=== PATIENT | female | born 1975 | race Caucasian/White ===

== ENCOUNTER 2022-11-09 03:08 | Emergency (ER) | payer MEDICAID ==
[~2022-11-09] VITALS: Ht 162.6 cm; Wt 181.4 kg
[~2022-11-09 03:08] MED LIST: ACET325 PO; CIPR500 PO; CYCL10 PO; HYDACE5 PO; IBUP600 PO; IBUP800 PO; RXPHEN200 PO; [UNRECOGNIZED DRUG - REMARK]
[2022-11-09 03:28] LABS: BASOPHILS ABSOLUTE AUTO 0.13 K/mm3 (0.00-0.23); BASOPHILS PERCENT AUTO 1 % (0-2); EOSINOPHILS ABSOLUTE AUTO 0.08 K/mm3 (0.00-0.68); EOSINOPHILS PERCENT AUTO 1 % (0-6); Hematocrit 46.5 % (33.0-51.0); Hemoglobin 14.4 g/dL (11.5-16.0); IMMATURE GRAN ABSOLUTE AUTO 0.56 K/mm3 (0.00-0.10); IMMATURE GRAN PERCENT AUTO 5 % (0-1); LYMPHOCYTES ABSOLUTE AUTO 2.79 K/mm3 (0.84-5.20); LYMPHOCYTES PERCENT AUTO 24 % (21-46); MONOCYTES ABSOLUTE AUTO 0.46 K/mm3 (0.16-1.47); MONOCYTES PERCENT AUTO 4 % (4-13); Mean Corpuscular HGB 27.1 pg (26.0-34.0); Mean Corpuscular Volume 88 fL (80-100); Mean Platelet Volume 10.3 fL (9.1-12.4); NEUTROPHILS ABSOLUTE AUTO 7.86 K/mm3 (1.96-9.15); NEUTROPHILS PERCENT AUTO 66 % (41-73); Platelet Count 386 K/mm3 (150-400); RDW Coefficient Variation 14.6 % (11.7-14.2); RDW Standard Deviation 47.1 fL (35.1-46.3); Red Blood Cell Count 5.31 M/mm3 (3.80-5.20); White Blood Cell Count 11.88 K/mm3 (4.00-11.30)
[2022-11-09 03:51] LABS: Albumin, Blood 2.7 g/dL (3.4-5.0); Albumin/Globulin Ratio 0.5 (0.8-1.8); Bilirubin, Total 0.2 mg/dL (0.1-1.0); Bun/Creatinine Ratio 18.3 (12.0-20.0); Calcium, Blood 8.7 mg/dL (8.5-10.1); Creatinine, Blood 0.87 mg/dL (0.40-1.00); Globulin, Blood 5.4 g/dL (2.2-4.0); Potassium, Blood 3.9 mmol/L (3.5-5.5); Total Protein, Blood 8.1 g/dL (6.4-8.2)
[2022-11-09 04:28] LABS: Magnesium, Blood 1.7 mg/dL (1.6-2.4)
[2022-11-09 04:49] VITALS: BP 197/81
== END 2022-11-09 05:35 | disposition home or self-care (01) ==
LOC: ER 03:08
PROVIDERS: Student in an Organized Health Care Education/Training Program
DX: I47.1 Supraventricular tachycardia (principal); Z88.2 Allergy status to sulfonamides; E66.9 Obesity, unspecified; F17.200 Nicotine dependence, unspecified, uncomplicated
CPT/HCPCS: 71046; 80053; 83735; 83880; 84484; 85025; 93005; 93010; 99285-25

== ENCOUNTER 2023-09-13 15:37 | Observation (INO) | payer OTHER ==
[~2023-09-13] VITALS: Ht 157.5 cm; Wt 177.7 kg
[2023-09-13] VITALS (33 sets, daily range): BP systolic 84–199; BP diastolic 48–108
[2023-09-13] MEDS ORDERED: Adenosine 3 MG/ML 2 ML Vial ONE ×2 (15:58→16:06)
[2023-09-13 16:01] LABS: Hematocrit 47.7 % (33.0-51.0); Hemoglobin 15.5 g/dL (11.5-16.0); Mean Corpuscular HGB 30.2 pg (26.0-34.0); Mean Corpuscular HGB Conc 32.5 g/dL (31.5-36.5); Mean Corpuscular Volume 93 fL (80-100); Mean Platelet Volume 10.4 fL (9.1-12.4); Platelet Count 292 K/mm3 (150-400); RDW Coefficient Variation 13.8 % (11.7-14.2); RDW Standard Deviation 46.7 fL (35.1-46.3); Red Blood Cell Count 5.14 M/mm3 (3.80-5.20); White Blood Cell Count 14.65 K/mm3 (4.00-11.30)
[2023-09-13] MEDS ORDERED: NS 1,000 ML IV ONE (16:02)
[2023-09-13] MEDS ORDERED: Diltiazem HCl 5 MG / ML 5ML Vial IV ONE (16:15)
[2023-09-13] MEDS ORDERED: NS 1,000 ML IV SCH (16:15)
[2023-09-13] MEDS ORDERED: Adenosine 3 MG/ML 2 ML Vial IV ONE (16:15)
[2023-09-13] MEDS ORDERED: Adenosine 3 MG/ML 4ML Vial IV ONE ×2 (16:15)
[2023-09-13 16:23] LABS: BASOPHILS PERCENT MAN 0 % (0-2); EOSINOPHILS ABSOLUTE MAN 0.14 K/mm3 (0.00-0.68); EOSINOPHILS PERCENT MAN 1 % (0-6); LYMPHOCYTES % ATYPICAL MANUAL 2 % (0-0); LYMPHOCYTES ABSOLUTE MAN 6.44 K/mm3 (0.84-5.20); LYMPHOCYTES PERCENT MAN 42 % (21-46); MONOCYTES ABSOLUTE MAN 1.17 K/mm3 (0.16-1.47); MONOCYTES PERCENT MAN 8 % (4-13); MYELOCYTE ABSOLUTE MAN 0.29 K/mm3 (0.00-0.00); MYELOCYTE PERCENT MAN 2 % (0-0); NEUTROPHILS ABSOLUTE MAN 6.59 K/mm3 (1.96-9.15); SEG NEUTROPHILS PERCENT MAN 45 % (41-73); TOTAL CELLS COUNTED 100
[2023-09-13 16:28] LABS: Free Thyroxine 1.14 ng/dL (0.70-1.60); Magnesium, Blood 1.4 mg/dL (1.6-2.4)
[2023-09-13 16:31] LABS: Albumin, Blood 3.4 g/dL (3.4-5.0); Albumin/Globulin Ratio 0.7 (0.8-1.8); Bilirubin, Total 0.4 mg/dL (0.1-1.0); Bun/Creatinine Ratio 11.6 (12.0-20.0); Calcium, Blood 8.7 mg/dL (8.5-10.1); Creatinine, Blood 1.12 mg/dL (0.40-1.00); Globulin, Blood 5.1 g/dL (2.2-4.0); Potassium, Blood 3.8 mmol/L (3.5-5.5); Thyroid Stimulating Hormone 1.36 uIU/mL (0.360-4.800); Total Protein, Blood 8.5 g/dL (6.4-8.2)
[2023-09-13] MEDS ORDERED: Lactated Ringer's 1,000 ML IV SCH (17:25)
[2023-09-13] MEDS ORDERED: Acetaminophen 325 MG TABLET PO PRN (17:25)
[2023-09-13] MEDS ORDERED: Magnesium Sulf 2 GM/Water 50ML 50 ML IV ONE (17:35)
[2023-09-13] MEDS ORDERED: Verapamil HCL 2.5 MG/ML 2ML Injection IV ONE (18:00)
[2023-09-13] MEDS ORDERED: Prinivil10 MG PO (18:25)
[2023-09-13] MEDS ORDERED: Nicoderm Cq1 EAC1 TOP (18:26)
[2023-09-13] MEDS ORDERED: METF500 PO (18:26)
--- NOTE | 2023-09-13 18:44 | NUR ---
ADMIT PT ARRIVED TO ICU 8 VIA ER BED AT 1815. PT STOOD UP TO TRANSFER TO ICU BED. PT REPORTS DIZZINESS AFTER TRANSFER TO ICU BED. PT IS AWAKE, ALERT, AND ORIENTED. PT DENIES CHEST PAIN. HR ALTERNATING FROM 90-100'S THEN UP TO 160-180'S. BP STABLE. PT ON ROOM AIR. IV'S SALINE LOCKED. DR KNIGHT NOTIFIED OF CONTINUED TACHYCARDIA. EKG ORDER RECIEVED. WILL CONTINUE TO MONITOR AND REPORT OFF TO ONCOMING RN.
[2023-09-13] MEDS ORDERED: Metoprolol Succinate 50 MG TABCR PO SCH (21:00)
[2023-09-13] MEDS ORDERED: Flecainide Acetate 100 MG Tab PO SCH (21:00)
--- NOTE | 2023-09-13 22:45 | NUR ---
ASSUMPTION OF CARE/ASSESSMENT: ASSUMED CARE OF PT AT 1900. PT IN BED, A&O X 4, ANXIOUS AND COOPERATIVE WITH CARE. PT RYTHYM ON MONITOR GOES IN AND OUT OF SVT AND SR; WHEN IN SR HR 80-90;S AND WHEN IN SVT HR 150-190'S, BP STABLE. PT DENEIS CHEST PAIN/PRESSURE AT THIS. PT ON RA, LUNG CLEAR/DIM THROUGHOUT; DENIES SOB. ABD OBESE, TENDER AND PT HAVING EPISODES OF DIARRHEA. REPORTS URGENCY TO VOID BUT OLIGURIC. PT USES BED PAIN WITH ONE PERSON ASSIST. PT CHANGES POSITION IN BED WITH MODERATE ASSISTANCE. USING CALL LIGHT APPROPRIATELY. PIV TO RAC AND TAMI THAT DRAW BACK BLOOD EASILY; RAC INFSING LR @ 125 MLS/HR, AND TAMI SALINE LOCKED. BED LOWERED, CALL LIGHT IN REACH.
[2023-09-14] VITALS (41 sets, daily range): BP systolic 69–158; BP diastolic 42–101
[2023-09-14 03:48] LABS: Hematocrit 43.6 % (33.0-51.0); Hemoglobin 13.8 g/dL (11.5-16.0); Mean Corpuscular HGB 30.2 pg (26.0-34.0); Mean Corpuscular HGB Conc 31.7 g/dL (31.5-36.5); Mean Corpuscular Volume 95 fL (80-100); Platelet Count 251 K/mm3 (150-400); RDW Coefficient Variation 13.6 % (11.7-14.2); RDW Standard Deviation 48.1 fL (35.1-46.3); Red Blood Cell Count 4.57 M/mm3 (3.80-5.20); White Blood Cell Count 13.52 K/mm3 (4.00-11.30)
[2023-09-14 04:10] LABS: Bun/Creatinine Ratio 15.3 (12.0-20.0); Calcium, Blood 8.4 mg/dL (8.5-10.1); Creatinine, Blood 0.85 mg/dL (0.40-1.00); Magnesium, Blood 1.8 mg/dL (1.6-2.4); Potassium, Blood 3.7 mmol/L (3.5-5.5)
[2023-09-14 04:22] LABS: BAND PERCENT MAN 5 % (0-8); BASOPHILS ABSOLUTE MAN 0.13 K/mm3 (0.00-0.23); BASOPHILS PERCENT MAN 1 % (0-2); EOSINOPHILS PERCENT MAN 3 % (0-6); LYMPHOCYTES ABSOLUTE MAN 4.73 K/mm3 (0.84-5.20); LYMPHOCYTES PERCENT MAN 35 % (21-46); METAMYELOCYTE ABSOLUTE MAN 0.13 K/mm3 (0.00-0.00); METAMYELOCYTE PERCENT MAN 1 % (0-0); MONOCYTES ABSOLUTE MAN 1.48 K/mm3 (0.16-1.47); MONOCYTES PERCENT MAN 11 % (4-13); NEUTROPHILS ABSOLUTE MAN 6.62 K/mm3 (1.96-9.15); SEG NEUTROPHILS PERCENT MAN 44 % (41-73); TOTAL CELLS COUNTED 100
--- NOTE | 2023-09-14 06:10 | NUR ---
SHIFT SUMMARY: NO ACUTE CHAGNES OVERNIGHT. PT STARTED ON METOPROLOL AND FLECAINIDE AT START OF SHIFT. SR-SVT WITH RATE 70-130'S, BP STABLE THROUGHOUT THE SHIFT AND DENIES CHEST PAIN. PT USING BEDPAN FOR ELIMINATION; TWO EPISODES OF DIARRHEA THROUGHOUT THE SHIFT. PT USES CALL LIGHT APPROPRIATE TO COMMUNICATE NEEDS. LR @ 125 MLS/HR. BED LOWERED, CALL LIGHT IN REACH, WILL REPORT OFF TO ONCOMING RN.
[2023-09-14] MEDS ORDERED: Insulin Regular 100 UNIT/ML 10ML Vial SC SCH (07:30)
[2023-09-14] MEDS ORDERED: Enoxaparin 40 MG/0.4 ML SYR SC SCH (09:00)
[2023-09-14] MEDS ORDERED: Cholestyramine 4 GM PKT PO SCH (16:30)
[2023-09-14] MEDS ORDERED: Potassium Chloride 20 MEQ TabCR PO SCH (17:00)
--- NOTE | 2023-09-14 17:51 | NUR ---
SHIFT SUMMARY NO ACUTE CHANGES THIS SHIFT. PT HAS REMAINED ALERT AND ORIENTED WHEN AWAKE. PT USES CALL LIGHT APPROPRIATELY. PT HAS DENIED CHEST PAIN OR DISCOMFORT. PT INITALLY WITH MORE FREQUENT EPISODES OF TACHYCARDIA WITH HR UP TO 180'S. PT HR HAS REMAINED 80-90'S THROUGHOUT THE AFTERNOON WITHOUT TACHYCARDIA EPISODES. VITAL SIGNS OTHERWISE HAVE REMAINED STABLE. PT UP TO TOILET TO VOID AND WITH MULTIPLE BM'S THIS SHIFT. PT UNABLE TO ASSIST WITH CARE WHEN UP. PT WITH LR INFUSING AT 125 ML/HR. PT WITH GOOD PO INTAKE THIS SHIFT. NO FAMILY AT BEDSIDE. PT IN RECLINER CHAIR MOST OF THIS SHIFT. WILL CONTINUE TO MONITOR AND REPORT OFF TO ONCOMING RN.
--- NOTE | 2023-09-14 20:59 | NUR ---
ASSUMPTION OF CARE: RECEIVED REPORT FROM REBEKAH GALLARDO AT 1915. PT ALERT AND ORIENTED, FOLLOWING COMMANDS AND ANSWERING QUESTIONS. PT UP IN THE CHAIR, ABLE TO AMBULATE TO BATHROOM WITH ASSIST. VOIDING YELLOW URINE. NO BM YET. PT ON RA, DENIES SOB. SPO2 SPOT CHECKS, >95%. LUNGS CLEAR. LITIGATION ASSOCIATE IN PLACE, SR WITH HR 80'S. DENIES CHEST PAIN/PRESSURE. SBP 130'S. PT DENIES PAIN T/O. PIV TO TAMI PATENT AND INFUSING LR AT 125 ML/HR. TOLERATING PO INTAKE WITH NO C/O N/V. CALL LIGHT IN REACH.
[2023-09-15] VITALS (10 sets, daily range): BP systolic 123–157; BP diastolic 64–95
[2023-09-15 03:25] LABS: Hemoglobin 13.5 g/dL (11.5-16.0); Mean Corpuscular HGB 30.3 pg (26.0-34.0); Mean Corpuscular HGB Conc 32.1 g/dL (31.5-36.5); Mean Corpuscular Volume 94 fL (80-100); Mean Platelet Volume 10.9 fL (9.1-12.4); Platelet Count 233 K/mm3 (150-400); RDW Coefficient Variation 13.7 % (11.7-14.2); RDW Standard Deviation 47.8 fL (35.1-46.3); Red Blood Cell Count 4.45 M/mm3 (3.80-5.20); White Blood Cell Count 12.23 K/mm3 (4.00-11.30)
[2023-09-15 03:56] LABS: Albumin, Blood 2.8 g/dL (3.4-5.0); Anion Gap 8 mmol/L (3-11); Blood Urea Nitrogen 18 mg/dL (8-24); Bun/Creatinine Ratio 21.6 (12.0-20.0); CO2, Blood 28 mmol/L (21-32); Calcium, Blood 8.3 mg/dL (8.5-10.1); Chloride, Blood 108 mmol/L (98-108); Creatinine, Blood 0.84 mg/dL (0.40-1.00); Glomerular Filtration Rate 86 (60-); Glucose, Blood 177 mg/dL (70-99); Magnesium, Blood 1.5 mg/dL (1.6-2.4); Phosphorus, Blood 3.4 mg/dL (2.5-4.9); Potassium, Blood 3.9 mmol/L (3.5-5.5); Sodium, Blood 140 mmol/L (136-145)
[2023-09-15] MEDS ORDERED: Magnesium Sulf 2 GM/Water 50ML 50 ML IV ONE (04:05)
[2023-09-15] MEDS ORDERED: NS 250 ML IV PRN (04:10)
--- NOTE | 2023-09-15 05:53 | NUR ---
SHIFT SUMMARY: NO ACUTE EVENTS OVERNIGHT. PT ABLE TO REST PER REQUEST. REMAINS ON RA WITH SPO2 >95%. LUNGS CLEAR. SHIRT HEMMER IN PLACE, SR WITH HR 70'S-80'S. SBP 140'S. DENIES CHEST PAIN/ PRESSURE. NO C/O SOB. ABLE TO AMBULATE TO BATHROOM WITH ASSIST, VOIDING YELLOW URINE. NO BM THIS SHIFT. PIV TO TAMI, PATENT AND INFUSING MAG AND TKO. PIV TO RAC, PATENT AND SALINE LOCKED. PT AFEBRILE THIS SHIFT. TOLERATING PO INTAKE WELL. DENIES PAIN T/O. BED LOW AND LOCKED, CALL LIGHT IN REACH.
--- NOTE | 2023-09-15 07:00 | NUR ---
ASSUME CARE: I have assumed care of this patient.
[2023-09-15] MEDS ORDERED: Tambocor100 MG PO (11:25)
[2023-09-15] MEDS ORDERED: CHOLESTYRAMI239.4 G1 PO (11:25)
[2023-09-15] MEDS ORDERED: METO50ER PO (11:26)
[2023-09-15] MEDS ORDERED: KLOR-CON 1010 ME9 PO (11:27)
--- NOTE | 2023-09-15 12:40 | NUR ---
DISCHARGE: Pt discharged home. She was wheeled out to her friend's vehicle via wheelchair by RN. IVs removed. Discharge teaching provided and questions answered. Prescriptions faxed to [facility] pharmacy. Final blood pressure discussed with Dr Hardwick and he was okay to continue with discharge.
== END 2023-09-15 12:42 | disposition home or self-care (01) ==
LOC: ER 15:37 → ICUE 15:38
PROVIDERS: Internal Medicine; Physician Assistant; ADMIT Family Medicine
DX: I47.10 Supraventricular tachycardia, unspecified (principal); I45.6 Pre-excitation syndrome; E11.9 Type 2 diabetes mellitus without complications; I10 Essential (primary) hypertension; E83.42 Hypomagnesemia; D72.829 Elevated white blood cell count, unspecified; K52.9 Noninfective gastroenteritis and colitis, unspecified; N17.9 Acute kidney failure, unspecified; E66.01 Morbid (severe) obesity due to excess calories; Z87.891 Personal history of nicotine dependence; Z88.2 Allergy status to sulfonamides; Z79.84 Long term (current) use of oral hypoglycemic drugs; Z79.899 Other long term (current) drug therapy
CPT/HCPCS: 36415; 80048; 80053; 80069; 82947; 83735; 84439; 84443; 85025; 85027; 93005; 93010; 93306; 96365; 96366; 96367; 96372; 96375; 96376; 99285-25; A9270; G0378; J0153; J1650; J1815; J3475; J7030; J7050; J7120

== ENCOUNTER → 2024-01-14 | Outpatient (CLI) | payer OTHER ==
[~2024-01-14] MED LIST changes: +CHOLESTYRAMI239.4 G1 PO; +KLOR-CON 1010 ME9 PO; +METF500 PO; +METO50ER PO; +Nicoderm Cq1 EAC1 TOP; +Prinivil10 MG PO; +Tambocor100 MG PO
[2024-01-26 07:15] LABS: HPV HIGH RISK BY TMA Not Detected; HPV SOURCE Cervical
== END ==
LOC: LAB SHORT 18:17 → LAB 18:17
PROVIDERS: Registered Nurse
DX: Z01.419 Encounter for gynecological examination (general) (routine) without abnormal findings (principal)
CPT/HCPCS: 87624; G0123

== ENCOUNTER → 2024-02-13 | Outpatient (CLI) | payer OTHER ==
[2024-02-13 11:02] LABS: BASOPHILS PERCENT AUTO 1 % (0-2); EOSINOPHILS PERCENT AUTO 2 % (0-6); Hemoglobin 14.8 g/dL (11.5-16.0); IMMATURE GRAN ABSOLUTE AUTO 0.37 K/mm3 (0.00-0.10); IMMATURE GRAN PERCENT AUTO 3 % (0-1); LYMPHOCYTES ABSOLUTE AUTO 3.69 K/mm3 (0.84-5.20); LYMPHOCYTES PERCENT AUTO 31 % (21-46); MONOCYTES ABSOLUTE AUTO 0.61 K/mm3 (0.16-1.47); MONOCYTES PERCENT AUTO 5 % (4-13); Mean Corpuscular HGB 29.1 pg (26.0-34.0); Mean Corpuscular HGB Conc 31.5 g/dL (31.5-36.5); Mean Corpuscular Volume 93 fL (80-100); Mean Platelet Volume 10.4 fL (9.1-12.4); NEUTROPHILS ABSOLUTE AUTO 7.02 K/mm3 (1.96-9.15); NEUTROPHILS PERCENT AUTO 59 % (41-73); Platelet Count 325 K/mm3 (150-400); RDW Standard Deviation 47.5 fL (35.1-46.3); Red Blood Cell Count 5.08 M/mm3 (3.80-5.20); White Blood Cell Count 11.99 K/mm3 (4.00-11.30)
[2024-02-13 11:11] LABS: Albumin, Blood 3.1 g/dL (3.4-5.0); Albumin/Globulin Ratio 0.6 (0.8-1.8); Bilirubin, Total 0.3 mg/dL (0.1-1.0); Bun/Creatinine Ratio 13.9 (12.0-20.0); Creatinine, Blood 1.08 mg/dL (0.40-1.00); Globulin, Blood 5.2 g/dL (2.2-4.0); Potassium, Blood 4.7 mmol/L (3.5-5.5); Total Protein, Blood 8.3 g/dL (6.4-8.2)
== END ==
LOC: LAB 10:57 → LAB SHORT 10:57
PROVIDERS: Chiropractor
DX: N39.0 Urinary tract infection, site not specified (principal)
CPT/HCPCS: 80053; 85025; 87077; 87086; 87186